=== PATIENT | female | born 1975 | race Caucasian/White ===

== ENCOUNTER → 2020-03-16 09:57 | Outpatient (CLI) | payer OTHER, SELFPAY | PROVIDERS: PCP Family Medicine; Referring Provider Family Medicine; Visit Provider Family Medicine | DX: Z12.31 Encounter for screening mammogram for malignant neoplasm of breast (principal); Z53.8 Procedure and treatment not carried out for other reasons ==

== ENCOUNTER 2020-10-02 12:09 | Emergency (ER) | payer OTHER, SELFPAY ==
[2020-10-02 12:17] VITALS: BP 131/84; PULSE 89; RESP 15; TEMP 37.2; O2SAT 99; BMI 16.0
--- NOTE | 2020-10-02 14:05 | ED_ITS ---
HPI - Head Injury General Chief complaint: Head Injury Stated complaint: FALL HIT FACE VOMITING Time Seen by Provider: 10/02/20 12:48 Source: patient Mode of arrival: Ambulatory Limitations: no limitations History of Present Illness HPI Narrative: 45-year-old female nonsmoker with history of thrombocytopenia presents with a chief complaint of ongoing headache, dizziness and persistent vomiting. Suffered a ground level fall a few days ago when out walking her dog in which she fell forward, struck her face and had a loss of consciousness. She has been having ongoing symptoms since that injury. Three days after her initial injury she was seen and evaluated at [facility] and had a very thorough evaluation including head and C-spine CTs as well as lab work. There were no significant findings and patient was sent home with encouragement to follow up. Since then she has had persistent vomiting, particularly when sitting upright and feels a bit dizzy and groggy. She feels a bit weak and fat igued. She denies any focal numbness, tingling or weakness. MD Complaint: head injury and fall Onset (ago): day(s) Mechanism of Injury: fall Place: home Loss of Consciousness: yes Location of injury: frontal Severity: moderate Quality: dull Radiation: none Other Injuries: none Context: other Associated symptoms: nausea, vomiting, vertigo and weakness Related Data Previous Rx's Medication Instructions Recorded ondansetron 4 mg PO TID-QID PRN #20 tab 10/02/20 Allergies Allergy/AdvReac Type Severity Reaction Status Date / Time No Known Drug Allergies Allergy Verified 10/02/20 12:19 Review of Systems Constitutional Constitutional: Denies chills, Reports fatigue, Denies fever(s), Denies frequent falls, Denies lethargy and Reports weakness Eyes Eyes: Denies change in vision, Denies eye discharge, Denies irritation and Denies loss of vision ENT Ears, Nose, Mouth, and Throat: Denies change in voice, Denies dizziness, Denies neck pain, Denies sore throat and Denies throat swelling Cardiovascular Cardiovascular: Denies chest pain, Denies irregular heart rhythm, Denies lightheadedness, Denies palpitations, Denies dyspnea, Denies dyspnea on exertion and Denies orthopnea Respiratory Respiratory: Denies cough, Denies dyspnea, Denies dyspnea on exertion and Denies wheezing Gastrointestinal Gastrointestinal: Denies abdominal pain, Denies change in bowel habits, Denies diarrhea, Reports nausea and Reports vomiting Musculoskeletal Musculoskeletal: Denies neck pain and Denies numbness Integumentary/Breasts Skin/Breast: Denies pruritus, Denies erythema, Denies rash and Denies wounds Neurologic Neurologic: Denies behavioral changes, Denies confusion, Denies dizziness, Denies frequent falls, Denies loss of vision, Denies numbness and Reports weakness Psychiatric Psychiatric: Denies anxiety, Denies behavioral changes, Denies confusion, Denies depression, Denies homicidal ideation and Denies suicidal ideation Endocrine Endocrine: Reports fatigue, Denies flushing and Denies palpitations Hematologic/Lymphatic Hematologic/Lymphatic: Reports easy bruising Allergic/Immunologic Allergic/Immunologic: Denies urticaria, Denies throat swelling and Denies wheezing Patient History Social History Smoking Status: Unknown if ever smoked Smoking Status: Unknown if ever smoked alcohol intake frequency: holidays/special occasions only Substance Use Type: does not use Exam Narrative Exam Narrative: GENERAL: [45] year old patient appears stated age. Well-nouris hed, well-developed patient, in mild distress. GCS 15 HEAD: Atraumatic. Normocephalic. EYES: Pupils equal round and reactive. Extraocular motions intact. No scleral icterus. No injection or drainage. ENT: Nose without bleeding, purulent drainage. Throat without erythema, tonsillar hypertrophy or exudate. Airway patent. NECK: Trachea midline. Non tender CARDIOVASCULAR: Regular rate and rhythm without murmurs, gallops, or rubs. RESPIRATORY: Clear to auscultation. Breath sounds equal bilaterally. No wheezes, rales, or rhonchi. GASTROINTESTINAL: Abdomen soft, non-tender, nondistended. EXTREMITIES: Large healing bruise on anterior left thigh and right thigh, tender to palpation, no laceration. No edema or joint tenderness. BACK: Nontender without deformity or crepitance. No flank tenderness. NEURO: AOx3. SKIN: No rash or erythema of visible areas, multiple small areas of bruising Initial Vital Signs Initial Vital Signs: Vital Signs Temperature 98.9 F 10/02/20 12:17 Pulse Rate 89 10/02/20 12:17 Respiratory Rate 15 10/02/20 12:17 Blood Pressure 131/84 10/02/20 12:17 Pulse Oximetry 99 10/02/20 12:17 Course Orders Ordered: ED Orders 10/02/20 14:10 Basic Metabolic Panel Stat Complete Blood Count AUTO DIFF Stat 10/02/20 14:15 CT head/brain wo con Stat 10/02/20 14:32 CT facial bones wo con Stat Discontinued Medications Sodium Chloride (Normal Saline 0.9%) 1,000 mls @ 1,000 mls/hr IV BOLUS ONE Stop: 10/02/20 15:13 Last Infusion: 10/02/20 15:19 Dose: 0 mls/hr Documented by: Admin: 10/02/20 14:27 Dose: 1,000 mls/hr Documented by: FRANKLIN Ondansetron HCl (Ondansetron 4 Mg/2 Ml Inj) 4 mg IV Q4HR PRN PRN Reason: Nausea And Vomiting Last Admin: 10/02/20 14:27 Dose: 4 mg Documented by: FRANKLIN Pantoprazole Sodium (Pantoprazole 40 Mg Vial) 40 mg IV NOW ONE Stop: 10/02/20 14:15 Last Admin: 10/02/20 14:27 Dose: 40 mg Documented by: FRANKLIN Vital Signs Vital signs: Vital Signs - 8 hr 10/02/20 12:17 10/02/20 15:37 Temperature 98.9 F Pulse Rate 89 Pulse Rate [Orthostatic Lying] 70 Pulse Rate [Orthostatic Sitting] 69 Pulse Rate [Orthostatic Standing] 83 Respiratory Rate 15 Blood Pressure 131/84 Blood Pressure [Orthostatic Lying] 124/83 Blood Pressure [Orthostatic Sitting] 118/83 Blood Pressure [Orthostatic Standing] 131/88 Pulse Oximetry 99 MDM - Head Injury Lab Data Result diagrams: 10/02/20 14:10 10/02/20 14:10 Labs: Lab Results 10/02/20 10/02/20 Range/Units 14:10 14:10 WBC 4.6 (4.5-11.0) X10^3/uL RBC 3.84 L (4.0-5.2) X10^6/uL Hgb 12.5 (12.0-16.0) g/dL Hct 37.2 (36-46) % MCV 96.7 (80-100) fL MCH 32.6 (26-34) PG MCHC 33.7 (30-36) % RDW 13.1 (11.6-14.8) % Plt Count 34 L* (150-400) X10^3/uL Neut % (Auto) 77.6 H (50-75) % Lymph % (Auto) 13.7 L (25-40) % [place] % (Auto) 8.2 (3-14) % Eos % (Auto) 0.1 L (2-4) % Baso % (Auto) 0.4 (0-2) % Neut # (Auto) 3600 (9789-8719) /uL Lymph # (Auto) 600 L (2327-2963) /uL [place] # (Auto) 400 (0-900) /uL Eos # (Auto) 0 (0-450) /uL Baso # (Auto) 0 (0-100) /uL RBC Morphology Normal morphology Sodium 138 (137-145) mmol/L Potassium 3.7 (3.4-5.1) mmol/L Chloride 100 (98-107) mmol/L Carbon Dioxide 30 (22-32) mmol/L BUN 14 (7-17) mg/dL Creatinine 0.62 (0.52-1.04) mg/dL Estimated GFR > 60.0 (>60) mL/min BUN/Creatinine Ratio 22.6 H (6-22) Glucose 106 H (70-100) mg/dL Calcium 10.1 (8.4-10.2) mg/dL Platelets 39 at prior visit Imaging Data CT scan - head: Radiologist's Impression: [address] Scan ReportSigned Patient: Jasmyne Morrow [facility]#: [id number]: 1975Acct:[id number]/Sex: 45 / FDate of Service: 10/02/20Loc: EDAccession Number: [id number] Procedure: CT head/brain wo con Ordering Provider: Tommy Seth D.O. PROCEDURE: CT HEAD/BRAIN WO CON INDICATIONS: fall, head injury, low platelets, vomiting TECHNIQUE: Noncontrast 4.5 mm thick angled axial sections acquired from the foramen magnum to the vertex, with coronal and sagittal reformats. For radiation dose reduction, the following was used: automated exposure control, adjustment of mA and/or kV according to patient size. COMPARISON: [facility], CT, CT FACIAL BONES WO CON, 10/02/2020, 14:35. FINDINGS: Image quality: Excellent. CSF spaces: Basal cisterns are patent. No extra-axial fluid collections. Ventricles are normal in size and shape. Brain: No midline shift. No intracranial masses or hemorrhage. Sel[place]-white matter interface is normal. Widening of the cortical sulci is for age. Skull and face: Calvarium and visualized facial bones are intact, without suspicious lesions. Sinuses: Visualized sinuses and mastoids are clear. IMPRESSION: No acute intracranial abnormality. Widening of the cortical sulci. Suspect early onset parenchymal loss. Dictated by: Wesley Hudson M.D. on 10/02/2020 at 14:54 Approved by: Wesley Hudson M.D. on 10/02/2020 at 14:56 Facial Bones: Radiologist's Impression: [address] [id number] Scan ReportSigned Patient: Jasmyne Morrow [facility]#: [id number]: 1975Acct:[id number]/Sex: 45 / FDate of Service: 10/02/20Loc: EDAccession Number: [id number] Procedure: CT facial bones wo con Ordering Provider: Tommy Seth D.O. PROCEDURE: CT FACIAL BONES WO CON INDICATIONS: fall, facial injury, vomiting TECHNIQUE: Noncontrast 2.5 mm thick axial images acquired from the mandible through the frontal sinuses, with coronal and sagittal reformatting. For radiation dose reduction, the following was used: automated exposure control, adjustment of mA and/or kV according to patient size. COMPARISON: [facility], CT, CT HEAD/BRAIN WO CON, 10/02/2020, 14:35. FINDINGS: Image quality: Excellent. Bones and teeth: Orbital espinoza are intact. Sinus espinoza show no fracture or deformity. Nasal bones and septum are intact. Visualized portions of the mandible demonstrate no fractures or subluxation. Zygomatic arches are intact. Pterygoid plates are intact. Visualized portions of the skull base and auditory canals are intact. Sinuses: Paranasal sinuses are aerated, without fluid levels, mucosal thickening, or mucoceles. Mastoid air cells are aerated. Soft tissues: Mild left periorbital soft tissue edema.. No enlarged lymph nodes. No soft tissue lacerations or debris. Vascular: Visualized vascular structures appear normal in the absence of contrast. Bony vascular foramina and canals are intact. IMPRESSION: 1. Mild left periorbital soft tissue edema. 2. No visualized fractures. Dictated by: Parul Keane M.D. on 10/02/2020 at 14:55 Approved by: Parul Keane M.D. on 10/02/2020 at 14:57 MDM Narrative Medical decision making narrative: Patient is feeling much better though still has some nausea. She has not vomited in the department. Her vital signs are reassuring, physical exam and imaging have no significant or concerning findings. She is able to keep ice chips down, return precautions given and questions answered to their apparent satisfaction Discharge Plan Departure Patient Disposition: Home Clinical Impression: Post concussion syndrome Instructions: Concussion Activity Restrictions/Additional Instructions: *You have been diagnosed with [ongoing vomiting after head injury. Physical exam, CT scan labs are very reassuring] *What to do: *Please continue to take your regular medications as directed. [x] New medication prescriptions sent to your pharmacy: [ [facility] in [place]] [ ] New medication written as a paper prescription [ ] No new medications given *Please follow up with your primary care provider in 2-3 days, call for an appointment. Let them know you were seen in the Emergency Department and that we ask that you be seen in follow up. We will electronically transmit a record of today's note if your PCP is in our system *If you do not have a primary care provider please contact the [facility] Resource line at [phone]. They will ask some questions about your medical history and help get you set up with a doctor in the community. *Return to Emergency Department if you should have any new, worsening or concerning symptoms, such as [fever greater than 101 F, shaking chills, worsening pain, persistent vomiting or other bothersome symptoms] Prescriptions: New ondansetron 4 mg tablet,disintegrating 4 mg PO TID-QID PRN (Reason: nausea and vomiting) Qty: 20 RF: 0 Referrals: Shena Denton MD [Primary Care Provider] -
--- NOTE | 2020-10-02 14:15 | DI.CT.S_ITS ---
PROCEDURE: CT HEAD/BRAIN WO CON INDICATIONS: fall, head injury, low platelets, vomiting TECHNIQUE: Noncontrast 4.5 mm thick angled axial sections acquired from the foramen magnum to the vertex, with coronal and sagittal reformats. For radiation dose reduction, the following was used: automated exposure control, adjustment of mA and/or kV according to patient size. COMPARISON: [facility], CT, CT FACIAL BONES WO CON, 10/02/2020, 14:35. FINDINGS: Image quality: Excellent. CSF spaces: Basal cisterns are patent. No extra-axial fluid collections. Ventricles are normal in size and shape. Brain: No midline shift. No intracranial masses or hemorrhage. Selby-white matter interface is normal. Widening of the cortical sulci is for age. Skull and face: Calvarium and visualized facial bones are intact, without suspicious lesions. Sinuses: Visualized sinuses and mastoids are clear. IMPRESSION: No acute intracranial abnormality. Widening of the cortical sulci. Suspect early onset parenchymal loss. Dictated by: Wesley Hudson M.D. on 10/02/2020 at 14:54 Approved by: Wesley Hudson M.D. on 10/02/2020 at 14:56
[2020-10-02] MEDS: ONDANSETRON 4 MG/2 ML INJ IV (14:27)
[2020-10-02] MEDS: SODIUM CHLORIDE 0.9% 1,000 ML 1000 ML IV (14:27)
[2020-10-02] MEDS: PANTOPRAZOLE 40 MG VIAL IV (14:27)
[2020-10-02 14:31] LABS: Add Manual Diff / Slide Review NO; BUN Creatinine Ratio 22.6 (6-22); Basophils Absolute Auto 0 /uL (0-100); Basophils Percent Auto 0.4 % (0-2); Blood Urea Nitrogen 14 mg/dL (7-17); Calcium 10.1 mg/dL (8.4-10.2); Carbon Dioxide 30 mmol/L (22-32); Chloride 100 mmol/L (98-107); Eosinophils Absolute Auto 0 /uL (0-450); Eosinophils Percent Auto 0.1 % (2-4); Estimated Glomerular Filt Rate > 60.0 mL/min (>60); Glucose 106 mg/dL (70-100); HEMOLYSIS < 15 (0-50); Hematocrit 37.2 % (36-46); Hemoglobin 12.5 g/dL (12.0-16.0); Lymphocytes Absolute Auto 600 /uL (1100-4500); Lymphocytes Percent Auto 13.7 % (25-40); Mean Corpuscular HGB Conc 33.7 % (30-36); Mean Corpuscular Hemoglobin 32.6 PG (26-34); Mean Corpuscular Volume 96.7 fL (80-100); Monocytes Absolute Auto 400 /uL (0-900); Monocytes Percent Auto 8.2 % (3-14); Neutrophils Absolute Auto 3600 /uL (1500-7000); Neutrophils Percent Auto 77.6 % (50-75); Potassium 3.7 mmol/L (3.4-5.1); Red Blood Cell Count 3.84 X10^6/uL (4.0-5.2); Red Cell Distribution Width 13.1 % (11.6-14.8); Sodium 138 mmol/L (137-145); White Blood Cell Count 4.6 X10^3/uL (4.5-11.0)
--- NOTE | 2020-10-02 14:32 | DI.CT.S_ITS ---
PROCEDURE: CT FACIAL BONES WO CON INDICATIONS: fall, facial injury, vomiting TECHNIQUE: Noncontrast 2.5 mm thick axial images acquired from the mandible through the frontal sinuses, with coronal and sagittal reformatting. For radiation dose reduction, the following was used: automated exposure control, adjustment of mA and/or kV according to patient size. COMPARISON: [facility], CT, CT HEAD/BRAIN WO CON, 10/02/2020, 14:35. FINDINGS: Image quality: Excellent. Bones and teeth: Orbital espinoza are intact. Sinus espinoza show no fracture or deformity. Nasal bones and septum are intact. Visualized portions of the mandible demonstrate no fractures or subluxation. Zygomatic arches are intact. Pterygoid plates are intact. Visualized portions of the skull base and auditory canals are intact. Sinuses: Paranasal sinuses are aerated, without fluid levels, mucosal thickening, or mucoceles. Mastoid air cells are aerated. Soft tissues: Mild left periorbital soft tissue edema.. No enlarged lymph nodes. No soft tissue lacerations or debris. Vascular: Visualized vascular structures appear normal in the absence of contrast. Bony vascular foramina and canals are intact. IMPRESSION: 1. Mild left periorbital soft tissue edema. 2. No visualized fractures. Dictated by: Parul Keane M.D. on 10/02/2020 at 14:55 Approved by: Parul Keane M.D. on 10/02/2020 at 14:57
[2020-10-02 14:54] LABS: Platelet Count 34 X10^3/uL (150-400); RBC Morphology Normal Morphology
[2020-10-02 15:37] VITALS: BP 118/83; BP 124/83; BP 131/88; PULSE 69; PULSE 70; PULSE 83
== END 2020-10-02 15:57 | disposition home or self-care (01) ==
PROVIDERS: Emergency Provider Emergency Medicine; PCP Family Medicine
DX: F07.81 Postconcussional syndrome (principal); R42 Dizziness and giddiness; R51.9 Headache, unspecified; R11.0 Nausea; W19.XXXA Unspecified fall, initial encounter
CPT/HCPCS: 36415; 70450; 70486; 80048; 85025; 96361; 96374; 96375; 99284; C9113; J2405

== ENCOUNTER → 2020-11-29 12:28 | Outpatient (CLI) | payer OTHER, SELFPAY ==
--- NOTE | 2020-11-29 12:30 | DI.RAD.S_ITS ---
PROCEDURE: FL SHOULDER INJECTION MR/CT RT INDICATIONS: PAIN IN RIGHT SHOULDER COMPARISON: None. TECHNIQUE: The indications, alternatives, benefits, risks, and complications of the procedure were explained to the patient. Written informed consent was obtained and placed in the chart. The shoulder was examined fluoroscopically and a site for needle placement chosen for entry into the glenohumeral joint from an anterior approach. The skin was prepped and draped in a sterile fashion, and 1% lidocaine infiltrated from skin down to joint capsule. A spinal needle was inserted into the glenohumeral joint, and a small amount of iodinated contrast media injected to confirm intra-articular placement of the needle tip. This was followed by approximately 12 mL dilute solution of a gadolinium containing MR contrast agent. The needle was removed and a dressing was applied. The patient was given postprocedural instructions and sent to the MR suite for MR imaging. FINDINGS: A single fluoroscopic spot image demonstrates intra-articular location of injected iodinated contrast. IMPRESSION: Successful fluoroscopically guided administration of dilute Gadolinium solution into the shoulder joint for MR arthrogram. Dictated by: Sekou Osman M.D. on 11/30/2020 at 17:05 Approved by: Sekou Osman M.D. on 11/30/2020 at 17:05
--- NOTE | 2020-11-29 12:31 | DI.MRI.S_ITS ---
PROCEDURE: MR SHOULDER RT W CON INDICATIONS: PAIN IN RIGHT SHOULDER TECHNIQUE: After the administration of 12 mL of dilute intra-articular Gadolinium contrast, oblique coronal T1 and T2 spin echo with fat saturation, oblique sagittal T1 spin echo with and without fat saturation, oblique sagittal T2 fast spin echo with fat saturation, axial T1 spin echo with fat saturation through the shoulder. COMPARISON: None. FINDINGS: Image quality: Excellent. Rotator cuff: The supraspinatus, infraspinatus, and subscapularis tendons appear intact throughout. No rotator cuff muscle atrophy on sagittal images. Bones and bursae: No bone marrow contusions or fractures. No acromioclavicular joint degeneration. The acromion demonstrates conventional anatomy, without an os acromiale. Capsule and soft tissues: The labrum and glenohumeral ligaments appear intact. The long head of the biceps tendon demonstrates normal location and morphology. The rotator interval appears normal, without fibrosis. The coracohumeral ligament is of normal thickness. No intra-articular bodies. IMPRESSION: 1. No evidence of glenoid labral tear. 2. No rotator cuff tear. Dictated by: Deuce Torres M.D. on 11/29/2020 at 15:57 Approved by: Deuce Torres M.D. on 11/29/2020 at 16:13
== END ==
PROVIDERS: PCP Family Medicine; Referring Provider Family Medicine; Visit Provider Family Medicine
DX: M25.511 Pain in right shoulder (principal)
CPT/HCPCS: 23350; 73222; 77002

== ENCOUNTER → 2021-05-27 08:07 | Outpatient (CLI) | payer OTHER, SELFPAY ==
--- NOTE | 2021-05-27 | DI.MG.S_ITS ---
BILATERAL DIGITAL SCREENING MAMMOGRAM 3D/2D WITH CAD: 05/27/2021 CLINICAL: Routine screening. Comparison is made to exam dated: 04/19/2020 mammogram - outside location. The tissue of both breasts is heterogeneously dense. This may lower the sensitivity of mammography. Current study was also evaluated with a Computer Aided Detection (CAD) system. Previously seen bilateral breast implants have been removed. No significant masses, calcifications, or other findings are seen in either breast. IMPRESSION: BENIGN There is no mammographic evidence of malignancy. A 1 year screening mammogram is recommended. This exam was interpreted at Station ID: [id number]. NOTE: For mammograms, a report in lay terms will be sent to the patient. Approximately 15% of breast malignancies will not be visualized mammographically. In the management of a palpable breast mass, a negative mammogram must not discourage biopsy of a clinically suspicious lesion. Electronically Signed By: Erwin jeronimo/prashanth:05/27/2021 16:19:19 letter sent: Normal Exam ACR BI-RADS Category 2: Benign Finding(s) [id number]
== END ==
PROVIDERS: PCP Family Medicine; Referring Provider Family Medicine; Visit Provider Family Medicine
DX: Z12.31 Encounter for screening mammogram for malignant neoplasm of breast (principal)
CPT/HCPCS: 77063; 77067